=== PATIENT | female | born 1950 | race Caucasian/White ===

== ENCOUNTER 2020-07-21 16:16 | Emergency (ER) | payer MEDICARE, SELFPAY ==
[2020-07-21 16:25] VITALS: BP 138/76; PULSE 92; RESP 20; TEMP 37; O2SAT 99
--- NOTE | 2020-07-21 16:40 | ED.GENADULT ---
HPI - General Adult General Chief complaint: Skin/Abscess/Foreign Body Stated complaint: Rash Time Seen by Provider: 07/21/20 16:40 Source: patient and RN notes reviewed Mode of arrival: ambulatory Limitations: no limitations History of Present Illness HPI narrative: 69-year-old female presents with complaints of raised, red, and itching rash to lower back for the past 3 days. Angely reports she started Prevagen 1 week ago, no other medication changes. Denies new changes in personal hygiene products or laundry detergent. No new foods. No swelling, burning, bleeding, or drainage. Denies fever, chills, headaches, weakness, fatigue, myalgia, facial swelling, or tongue swelling. Denies chest pain or dyspnea. Tolerating po intake well. Remains active. The patient reports she have not been diagnosed with COVID-19. The patient reports she is not waiting for the results of a COVID-19 lab test. The patient reports she do not have a new or worsening cough or shortness of breath. Denies chest pain. The patient reports she do not have any rhinorrhea, congestion, sore throat, loss of taste, nausea, vomiting, abdominal pain, and diarrhea. Denies recent traveling. Denies concerns for COVID-19 or exposures been home with limited outdoor exposure except for essential household needs, work, and return home. At this time, patient is not suspected of having COVID-19. Some parts of this dictation were generated by voice recognition software and may contain typographical and/or grammatical inaccuracies. Related Data Home Medications Medication Instructions Recorded Confirmed Prevagen 1 tab-cap PO DAILY 07/21/20 ergocalciferol (vitamin D2) 1,250 mcg PO DAILY 07/21/20 07/21/20 levothyroxine [Euthyrox] 125 mcg PO DAILY 07/21/20 07/21/20 pravastatin 80 mg PO DAILY 07/21/20 07/21/20 venlafaxine 75 mg PO DAILY 07/21/20 07/21/20 zolpidem 10 mg PO HS 07/21/20 07/21/20 Allergies Allergy/AdvReac Type Severity Reaction Status Date / Time No Known Allergies Allergy Verified 07/21/20 16:23 Review of Systems Review of Systems: Narrative: CONSTITUTIONAL: Denies fever, chills, sweats. EYES: Denies visual changes, redness, discharge. ENT: Denies rhinorrhea, congestion, sore throat, otalgia. CARDIOVASCULAR: Denies chest pain, palpitations, edema. RESPIRATORY: Denies dyspnea, wheezing, cough. GASTROINTESTINAL: Denies abdominal pain, nausea, vomiting, diarrhea. GENITOURINARY: Denies dysuria, hematuria, abnormal discharge. SKIN: Complains of raised, red, and itching rash to lower back. Denies drainage. MUSCULOSKELETAL: Denies acute back pain, joint pain, or myalgia. NEUROLOGIC: Denies numbness or focal weakness. PSYCHIATRIC: Denies anxiety or depression. All other systems reviewed & are unremarkable except as noted in HPI and below. [facility] Past Medical History Medical History (Updated 07/22/20 @ 00:00 by Kapil Chamberlain) Depression Hypercholesteremia Hypothyroidism Post-menopausal Vitamin A deficiency Surgical History Surgical History (Updated 07/21/20 @ 16:55 by RONIT Montes) History of cholecystectomy Hx of appendectomy Family History Family History (Updated 07/21/20 @ 16:57 by RONIT Montes) Father , related to lung problems (unknown) Angely says she was young Unknown family medical history Mother , Alzheimer Alzheimers disease Social History Social History (Updated 07/21/20 @ 16:58 by RONIT Montes) Smoking status: Former smoker Tobacco type: cigarettes Second hand tobacco smoke exposure: No Smoking end date: 12/22/14 Alcohol intake: never Substance use: current Substance use type: marijuana Living arrangements: with family Occupation/Education: occupation Gender identity (if verbalized by the patient): Female Sexual Orientation (if Verbalized by the Patient): Straight or Heterosexual Comments At time of signature, agree with nurse aiden
== END 2020-07-21 17:05 | disposition home or self-care (01) ==
PROVIDERS: Emergency Provider Nurse Practitioner Family; PCP Internal Medicine Geriatric Medicine
DX: L30.9 Dermatitis, unspecified (principal); Z87.891 Personal history of nicotine dependence; E78.00 Pure hypercholesterolemia, unspecified; E03.9 Hypothyroidism, unspecified; F32.9 Major depressive disorder, single episode, unspecified
CPT/HCPCS: 99203; G0463

== ENCOUNTER 2022-05-15 10:29 | Emergency (ER) | payer OTHER, SELFPAY ==
--- NOTE | ~2022-05-15 | XR_ITS ---
XR wrist LT min 3V 05/15/2022 10:57 Indication: Left wrist pain after fall Procedure: 4 views left wrist Comparison: No prior studies for comparison. Findings: There is a comminuted intra-articular fracture of the distal aspect of the radius with mild displacement of the dorsal fragment. Moderate soft tissue swelling. Generalized osteopenia. 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 There is a nondisplaced ulnar styloid fracture. Impression: 1: Comminuted intra-articular fracture distal aspect of the radius with mild displacement of the dors al fragment. Reviewed, dictated and finalized at location B. Impression: 1: Comminuted intra-articular fracture distal aspect of the radius with mild di splacement of the dorsal fragment.
--- NOTE | 2022-05-15 10:34 | ED.UPPEXIN ---
HPI - Extremity Injury (Upper) General Chief Complaint: Extremity Injury, Upper Stated Complaint: left wrist injury Time Seen by Provider: 05/15/22 10:34 Source: patient and RN notes reviewed History of Present Illness HPI narrative: Patient is a 71-year-old female who presents to urgent care with complaints of left wrist pain and swelling. Patient states that she lost her balance last night at 10:[address] and fell with an outstretched left hand. Patient states that she took leftover pain medication and went to bed. States that she woke up this morning with increased pain and swelling. No acute distress noted. Denies any other injuries from the incident. Patient aware of the plan of care. Some parts of this dictation were generated by voice recognition software and may contain typographical and/or grammatical inaccuracies. Related Data Home Medications Medication Instructions Recorded Confirmed ergocalciferol (vitamin D2) 1,250 1,250 mcg PO DAILY 07/21/20 07/21/20 mcg (50,000 unit) capsule levothyroxine 125 mcg tablet 125 mcg PO DAILY 07/21/20 07/21/20 (Euthyrox) zolpidem 10 mg tablet 10 mg PO HS 07/21/20 07/21/20 alendronate 70 mg tablet 70 mg PO WEEKLY 05/15/22 05/15/22 ropinirole 0.5 mg tablet 0.5 mg PO DAILY 05/15/22 05/15/22 Allergies Allergy/AdvReac Type Severity Reaction Status Date / Time No Known Allergies Allergy Verified 05/15/22 10:47 Review of Systems Review of Systems: CONSTITUTIONAL: Denies fever, chills, or sweats. EYES: Denies visual changes, redness, or discharge. ENT: Denies rhinorrhea, congestion, sore throat, or otalgia. CARDIOVASCULAR: Denies chest pain, palpitations, or edema. RESPIRATORY: Denies cough or dyspnea. GASTROINTESTINAL: Denies abdominal pain, nausea, vomiting, or diarrhea. GENITOURINARY: Denies dysuria or hematuria. SKIN: Denies rash or itching. MUSCULOSKELETAL: reports of left wrist pain and swelling NEUROLOGIC: Denies headache, numbness, or weakness. All other systems reviewed are negative, except as documented in HPI. [facility] Past Medical History Medical History (Updated 05/15/22 @ 11:14 by RONIT Fish) Depression Hypercholesteremia Hypothyroidism Post-menopausal Vitamin A deficiency Surgical History Surgical History (Updated 07/21/20 @ 16:55 by RONIT Montes) History of cholecystectomy Hx of appendectomy Family History Family History (Updated 07/21/20 @ 16:57 by RONIT Montes) Father , related to lung problems (unknown) Angely says she was young Unknown family medical history Mother , Alzheimer Alzheimers disease Social History Social History (Updated 07/21/20 @ 16:58 by RONIT Montes) Smoking status: Former smoker Tobacco type: cigarettes Second hand tobacco smoke exposure: No Smoking end date: 12/22/14 Alcohol intake: never Substance use: current Substance use type: marijuana Gender identity (if verbalized by the patient): Female Sexual Orientation (if Verbalized by the Patient): Straight or Heterosexual Comments At the time of my signature, I reviewed and agree with the nursing past medical, surgical, social, and family history. There is no relevant family history pertinent to the patient complaint. Exam Narrative: GENERAL: This is a well-nourished, well-developed patient, in no apparent distress. HEAD: normocephalic, atraumatic. EYES: PERRL. Sclera clear/white. Vision is grossly intact. EARS: External ears normal NOSE: External nose normal with no obvious nasal discharge, nares without redness, no rhinorrhea. THROAT: Mucous membranes moist NECK: Neck supple SKIN: warm, intact with no suspicious lesions or rash, good texture and turgor. NEURO: awake, alert, and oriented to person, place and time. There were no obvious focal neurologic abnormalities. EXTREMITIES: moderate ecchymosis and edema to the left wrist. Obvious deformity. Ra
[2022-05-15 10:40] VITALS: BP 117/65; PULSE 67; RESP 18; TEMP 36.5; O2SAT 99
== END 2022-05-15 11:45 | disposition home or self-care (01) ==
PROVIDERS: Emergency Provider Nurse Practitioner Family
DX: S52.572A Other intraarticular fracture of lower end of left radius, initial encounter for closed fracture (principal); W18.30XA Fall on same level, unspecified, initial encounter; E78.00 Pure hypercholesterolemia, unspecified; E03.9 Hypothyroidism, unspecified; E50.9 Vitamin A deficiency, unspecified; Z87.891 Personal history of nicotine dependence
CPT/HCPCS: 29125; 73110; 99214; A4565; G0463

== ENCOUNTER 2022-06-16 12:59 | Outpatient (CLI) | payer OTHER, SELFPAY ==
--- NOTE | ~2022-06-16 | XR_ITS ---
XR wrist LT min 3V 06/16/2022 13:08 Indication: Left wrist fracture Procedure: 3 views left wrist Comparison: 05/20/2022 Findings: Stable alignment of comminuted intra-articular fracture of the distal aspect of the radius extending intra-articularly at the radial styloid. Stable alignment of ulnar styloid fracture. Osteop enia. There is polyarticular osteoarthritis. There is minimal depression of the posterior aspect of t he radial fracture seen on lateral view. There is evidence for periosteal reaction. Impression: 1: Stable alignment of healing distal intra-articular fracture of the radius distally and the ulnar s tyloid. Reviewed, dictated and finalized at location A. D INSPECTOR Impression: 1: Stable alignment of healing distal intra-articular fracture of the radius di stally and the ulnar styloid.
== END 2022-06-16 13:00 | disposition home or self-care (01) ==
LOC: ANHBWCIMG 13:01
PROVIDERS: Visit Provider Orthopaedic Surgery
DX: M25.532 Pain in left wrist (principal)
CPT/HCPCS: 73110

== ENCOUNTER 2022-06-30 12:25 | Outpatient (CLI) | payer OTHER, SELFPAY ==
--- NOTE | ~2022-06-30 | XR_ITS ---
EXAM: XR wrist LT min 3V DATE: 06/30/2022 12:34 HISTORY: f/u lt wrist fx . COMPARISON: 06/16/2022. FINDINGS: Decreased mineralization. Comminuted, intra-articular, and impacted distal left radial fra cture remains unchanged in overall alignment. Fracture line hyperemia and periosteal change. Stable l eft ulnar styloid fracture. IMPRESSION: Early healing changes noted in the impacted and comminuted distal left radial fracture. Reviewed, dictated and finalized at location K. LE STITCH OPERATOR IMPRESSION: Early healing changes noted in the impacted and comminuted distal l eft radial fracture.
== END 2022-06-30 12:26 | disposition home or self-care (01) ==
LOC: ANHBWCIMG 12:26
PROVIDERS: Visit Provider Orthopaedic Surgery
DX: S52.592D Other fractures of lower end of left radius, subsequent encounter for closed fracture with routine healing (principal); X58.XXXD Exposure to other specified factors, subsequent encounter
CPT/HCPCS: 73110